=== PATIENT | male | born 1955 | race Caucasian/White ===

== ENCOUNTER 2020-10-19 08:56 | Outpatient (CLI) | payer MEDICARE | END 2020-10-19 08:57 | disposition home or self-care (01) | LOC: CSHWCC 08:56 | PROVIDERS: ATTEND Nurse Practitioner Family | DX: I87.331 Chronic venous hypertension (idiopathic) with ulcer and inflammation of right lower extremity (principal); I87.2 Venous insufficiency (chronic) (peripheral); L97.211 Non-pressure chronic ulcer of right calf limited to breakdown of skin; E11.9 Type 2 diabetes mellitus without complications; E78.5 Hyperlipidemia, unspecified; H40.9 Unspecified glaucoma; I10 Essential (primary) hypertension; I89.0 Lymphedema, not elsewhere classified; R60.0 Localized edema | CPT/HCPCS: 99213; G0463 ==

== ENCOUNTER 2020-10-27 08:50 | Outpatient (CLI) | payer MEDICARE | END 2020-10-27 08:51 | disposition home or self-care (01) | LOC: CSHWCC 08:50 | PROVIDERS: ATTEND Nurse Practitioner Family | DX: I87.331 Chronic venous hypertension (idiopathic) with ulcer and inflammation of right lower extremity (principal); I87.2 Venous insufficiency (chronic) (peripheral); E11.622 Type 2 diabetes mellitus with other skin ulcer; L97.811 Non-pressure chronic ulcer of other part of right lower leg limited to breakdown of skin; L97.211 Non-pressure chronic ulcer of right calf limited to breakdown of skin; I89.0 Lymphedema, not elsewhere classified; R60.0 Localized edema; E11.39 Type 2 diabetes mellitus with other diabetic ophthalmic complication; H40.9 Unspecified glaucoma; E78.5 Hyperlipidemia, unspecified | CPT/HCPCS: 97139; G0463; 99213 ==

== ENCOUNTER 2020-11-08 08:52 | Outpatient (CLI) | payer MEDICARE | END 2020-11-08 08:53 | disposition home or self-care (01) | LOC: CSHWCC 08:52 | PROVIDERS: ATTEND Nurse Practitioner Family | DX: I87.331 Chronic venous hypertension (idiopathic) with ulcer and inflammation of right lower extremity (principal); I87.311 Chronic venous hypertension (idiopathic) with ulcer of right lower extremity; L97.211 Non-pressure chronic ulcer of right calf limited to breakdown of skin; L97.811 Non-pressure chronic ulcer of other part of right lower leg limited to breakdown of skin; R60.0 Localized edema; E11.9 Type 2 diabetes mellitus without complications; E78.5 Hyperlipidemia, unspecified; H40.9 Unspecified glaucoma; I87.2 Venous insufficiency (chronic) (peripheral); I89.0 Lymphedema, not elsewhere classified | CPT/HCPCS: 99212; G0463 ==

== ENCOUNTER 2021-01-17 14:05 | Outpatient (CLI) | payer MEDICARE | END 2021-01-17 14:06 | disposition home or self-care (01) | LOC: CSHRAD 14:05 | PROVIDERS: ATTEND Family Medicine | DX: M25.59 Pain in other specified joint (principal); M19.09 Primary osteoarthritis, other specified site | CPT/HCPCS: 71130 ==

== ENCOUNTER 2021-02-02 08:22 | Outpatient (CLI) | payer MEDICARE | END 2021-02-02 08:23 | disposition home or self-care (01) | LOC: CSHWCC 08:22 | PROVIDERS: ATTEND Nurse Practitioner Family | DX: I87.2 Venous insufficiency (chronic) (peripheral) (principal); S80.821D Blister (nonthermal), right lower leg, subsequent encounter; S90.521D Blister (nonthermal), right ankle, subsequent encounter; E11.9 Type 2 diabetes mellitus without complications; E78.5 Hyperlipidemia, unspecified; H40.9 Unspecified glaucoma; I10 Essential (primary) hypertension; I89.0 Lymphedema, not elsewhere classified; R60.0 Localized edema | CPT/HCPCS: 11102; 87070; 87186; 87205; 88305; 88312; 99213; G0463 ==

== ENCOUNTER 2021-02-07 07:39 | Outpatient (CLI) | payer MEDICARE | END 2021-02-07 07:40 | disposition home or self-care (01) | LOC: CSHWCC 07:39 | PROVIDERS: ATTEND Nurse Practitioner Family | DX: I87.311 Chronic venous hypertension (idiopathic) with ulcer of right lower extremity (principal); I87.2 Venous insufficiency (chronic) (peripheral); E11.622 Type 2 diabetes mellitus with other skin ulcer; L97.312 Non-pressure chronic ulcer of right ankle with fat layer exposed; S80.821D Blister (nonthermal), right lower leg, subsequent encounter; I89.0 Lymphedema, not elsewhere classified; R60.0 Localized edema; E78.5 Hyperlipidemia, unspecified; H40.9 Unspecified glaucoma ==

== ENCOUNTER 2024-03-04 10:51 | Outpatient (CLI) | payer MEDICARE ==
[2024-03-04] MEDS ORDERED: Iopamidol 300 61% 100 ML VIAL FS ONE (11:28)
== END 2024-03-04 10:52 | disposition home or self-care (01) ==
LOC: CSHCT 10:51
PROVIDERS: ATTEND Urology
DX: R97.20 Elevated prostate specific antigen [PSA] (principal); R59.1 Generalized enlarged lymph nodes; N40.0 Benign prostatic hyperplasia without lower urinary tract symptoms; N32.89 Other specified disorders of bladder; N28.1 Cyst of kidney, acquired; K76.0 Fatty (change of) liver, not elsewhere classified
CPT/HCPCS: 74178; 82565

== ENCOUNTER 2024-12-05 16:27 | Emergency (ER) | payer OTHER ==
[~2024-12-05 16:27] MED LIST: Iopamidol 370 76% 100 ML VIAL ONE
[2024-12-05] MEDS ORDERED: Acetaminophen 500 MG TAB ONE (17:17)
[2024-12-05] MEDS ORDERED: Ketorolac Tromethamine 30 MG (1 mL) VIAL ONE (17:17)
[2024-12-05 17:18] LABS: #Basophils Less than 0.03 10x3/uL (0.0-0.2); #Eosinophils 0.24 10x3/uL (0.0-0.5); #Monocytes 0.46 10x3/uL (0.0-1.1); #Neutrophils 6.52 10x3/uL (1.5-8.4); %Basophils 0.2 % (0.0-2.0); %Eosinophils 2.8 % (0.0-6.0); %Lymphocytes 15.5 % (18.0-47.0); %Monocytes 5.3 % (0.0-10.0); %Neutrophils 74.9 % (40.0-75.0); Hematocrit 35.9 % (38.8-50.0); Hemoglobin 11.6 g/dL (13.5-17.5); Mean Corpuscular Hemoglobin 29.1 pg (27.0-33.0); Mean Corpuscular Volume 90.0 fL (81.2-95.1); Platelet Count 186 10x3/uL (150-450); Red Blood Cell (RBC) Count 3.99 10x6/uL (4.32-5.72); White Blood Cell (WBC) Count 8.70 10x3/uL (3.5-10.5)
[2024-12-05 17:32] LABS: ALT (SGPT) 12 U/L (Less than 45); AST (SGOT) 18 U/L (11-34); Albumin 3.5 g/dL (3.1-4.5); Alkaline Phosphatase 52 U/L (40-110); Anion Gap 14 mmol/L (10-20); BUN (Urea Nitrogen) 15 mg/dL (8.4-25.7); Bilirubin, Total 0.7 mg/dL (0.3-1.2); Calc. Creatinine Clearance 0 mL/min (70-130); Calcium 9.0 mg/dL (7.8-10.44); Carbon Dioxide 26 mmol/L (23-31); Chloride 102 mmol/L (98-107); Globulin 4.2 g/dL (2.4-3.5); Glucose 85 mg/dL (80-115); Potassium 3.8 mmol/L (3.5-5.1); Sodium 138 mmol/L (136-145)
[2024-12-05 17:40] LABS: Troponin I Less than 0.010 ng/mL (< 0.028)
== END 2024-12-05 20:06 | disposition home or self-care (01) ==
LOC: CSHERS 16:27
DX: R07.9 Chest pain, unspecified (principal); E11.9 Type 2 diabetes mellitus without complications; I10 Essential (primary) hypertension; Z55.6 Problems related to health literacy
CPT/HCPCS: 71045; 71275; 80053; 83880; 84484; 85025; 85379; 93005; J1885; 96374; Q9967

== ENCOUNTER 2025-01-10 17:02 | Emergency (ER) | payer OTHER ==
[~2025-01-10 17:02] MED LIST changes: +Iopamidol 300 61% 100 ML VIAL FS ONE; -Iopamidol 370 76% 100 ML VIAL ONE
== END 2025-01-10 19:41 | disposition home or self-care (01) ==
LOC: CSHERS 17:02
DX: M25.512 Pain in left shoulder (principal); M19.90 Unspecified osteoarthritis, unspecified site; I10 Essential (primary) hypertension; E11.39 Type 2 diabetes mellitus with other diabetic ophthalmic complication; H40.9 Unspecified glaucoma
CPT/HCPCS: 73030; 93005; Q9967; 99283